=== PATIENT | male | born 1985 | race Native Hawaiian/Other Pacific Islander ===

== ENCOUNTER 2018-06-06 06:26 | Emergency (ER) | payer OTHER ==
[~2018-06-06] VITALS: Ht 167.6 cm; Wt 90.7 kg
[2018-06-06 06:55] LABS: PLATELET COUNT 299 K/uL (142-355)
[2018-06-06 14:14] VITALS: BP 126/74; TEMP 97.8
== END 2018-06-06 14:16 | disposition other institution (70) ==
LOC: ED 06:26
PROVIDERS: Internal Medicine
DX: F31.9 Bipolar disorder, unspecified (principal); R00.0 Tachycardia, unspecified
CPT/HCPCS: 80053; 80307; 80320; 80329; 81000; 85027; 93005; 96372; 99285; J2060

== ENCOUNTER 2020-08-14 11:32 | Inpatient (IN) | payer OTHER ==
[~2020-08-14] VITALS: Ht 172.7 cm; Wt 88.5 kg
[2020-08-27 22:13] LABS: PLATELET COUNT 296 K/uL (142-355)
[2020-08-27 22:15] LABS: POTASSIUM 3.6 mmol/L (3.6-5.2)
[2020-08-28 06:06] LABS: PLATELET COUNT 260 K/uL (142-355)
[2020-08-28 08:05] LABS: POTASSIUM 4.1 mmol/L (3.6-5.2)
[2020-08-28 08:06] LABS: PLATELET COUNT 230 K/uL (142-355)
[2020-08-28 10:35] LABS: PLATELET COUNT 247 K/uL (142-355); POTASSIUM 3.8 mmol/L (3.6-5.2)
== END 2020-08-17 14:35 | disposition home or self-care (01) | DRG 603 ==
LOC: ED 11:32 → MED/SURG 13:26
PROVIDERS: ADMIT Hospitalist; ATTEND Internal Medicine Endocrinology, Diabetes & Metabolism
DX: L03.115 Cellulitis of right lower limb (principal); N13.2 Hydronephrosis with renal and ureteral calculous obstruction; I10 Essential (primary) hypertension; B95.61 Methicillin susceptible Staphylococcus aureus infection as the cause of diseases classified elsewhere; F12.10 Cannabis abuse, uncomplicated; F15.10 Other stimulant abuse, uncomplicated; Z72.0 Tobacco use; R73.9 Hyperglycemia, unspecified; S81.851A Open bite, right lower leg, initial encounter; W54.0XXA Bitten by dog, initial encounter; Y93.89 Activity, other specified; Y92.89 Other specified places as the place of occurrence of the external cause
CPT/HCPCS: 36415; 80048; 80053; 80202; 80307; 80320; 81000; 82150; 83036; 83605; 83690; 85027; 87040; 87070; 87077; 87185; 87186; 87205; 94640; 94664; 96360; 96365; 96375; 99284; J3370

== ENCOUNTER 2020-09-22 05:10 | Emergency (ER) | payer OTHER ==
[~2020-09-22] VITALS: Ht 170.2 cm; Wt 81.6 kg
[2020-09-22 05:16] VITALS: TEMP 98.4
[2020-09-22 06:23] VITALS: BP 120/67
== END 2020-09-22 06:24 | disposition home or self-care (01) ==
LOC: ED 05:10
DX: L03.115 Cellulitis of right lower limb (principal)
CPT/HCPCS: 96372; 99282; J0696

== ENCOUNTER 2020-11-09 21:30 | Emergency (ER) | payer OTHER ==
[~2020-11-09] VITALS: Ht 170.2 cm; Wt 81.6 kg
[2020-11-09 22:25] VITALS: BP 133/83; TEMP 98.2
== END 2020-11-09 22:25 | disposition home or self-care (01) ==
LOC: ED 21:30
DX: L02.413 Cutaneous abscess of right upper limb (principal); S50.861A Insect bite (nonvenomous) of right forearm, initial encounter; W57.XXXA Bitten or stung by nonvenomous insect and other nonvenomous arthropods, initial encounter; Y92.89 Other specified places as the place of occurrence of the external cause
CPT/HCPCS: 96372; 99283; J0696

== ENCOUNTER 2021-07-09 16:01 | Emergency (ER) | payer OTHER ==
[~2021-07-09] VITALS: Ht 170.2 cm; Wt 99.8 kg
[2021-07-09 16:08] VITALS: BP 139/82; TEMP 98.4
== END 2021-07-09 16:55 | disposition home or self-care (01) ==
LOC: ED 16:01
DX: S90.31XA Contusion of right foot, initial encounter (principal); S93.691A Other sprain of right foot, initial encounter; S92.421A Displaced fracture of distal phalanx of right great toe, initial encounter for closed fracture; S92.511A Displaced fracture of proximal phalanx of right lesser toe(s), initial encounter for closed fracture; W22.8XXA Striking against or struck by other objects, initial encounter; Y92.89 Other specified places as the place of occurrence of the external cause
CPT/HCPCS: 99283

== ENCOUNTER 2021-07-10 19:12 | Emergency (ER) | payer OTHER ==
[~2021-07-10] VITALS: Ht 172.7 cm; Wt 99.8 kg
[2021-07-10 21:35] VITALS: BP 126/83; TEMP 98.9
== END 2021-07-10 21:35 | disposition home or self-care (01) ==
LOC: ED 19:12
DX: S92.421D Displaced fracture of distal phalanx of right great toe, subsequent encounter for fracture with routine healing (principal); S92.511D Displaced fracture of proximal phalanx of right lesser toe(s), subsequent encounter for fracture with routine healing; W22.8XXD Striking against or struck by other objects, subsequent encounter; Y92.89 Other specified places as the place of occurrence of the external cause
CPT/HCPCS: 99282

== ENCOUNTER 2021-08-17 14:17 | Emergency (ER) | payer OTHER ==
[~2021-08-17] VITALS: Ht 172.7 cm; Wt 99.8 kg
[2021-08-17 15:12] LABS: PLATELET COUNT 215 K/uL (142-355)
[2021-08-17 15:22] LABS: POTASSIUM 4.7 mmol/L (3.6-5.2)
[2021-08-17] MEDS ORDERED: ONDA4TAB3 PO (16:37)
[2021-08-17 18:00] VITALS: BP 117/76; TEMP 98.5
== END 2021-08-17 18:00 | disposition home or self-care (01) ==
LOC: ED 14:17
PROVIDERS: Emergency Medicine
DX: R11.2 Nausea with vomiting, unspecified (principal); R19.7 Diarrhea, unspecified; K52.89 Other specified noninfective gastroenteritis and colitis; R94.5 Abnormal results of liver function studies
CPT/HCPCS: 36415; 80053; 80320; 82150; 83690; 85027; 96360; 96374; 99284; J2405